=== PATIENT | male | born 1965 | race Hispanic/Latino ===

== ENCOUNTER 2018-02-12 14:55 | Emergency (ER) | payer BC ==
[2018-02-12 15:12] VITALS: O2SAT 98; BMI 38.4
[2018-02-12] MEDS ORDERED: Sodium Chloride 0.9% 1,000 ML IV STA (15:43)
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
[2018-02-12 16:37] LABS: ALB/GLOB RATIO 1.9 (1.0-2.1); ALBUMIN 4.6 g/dL (3.5-5.0); ALT/SGPT 56 U/L (21-72); AST/SGOT 30 U/L (17-59); BLOOD UREA NITROGEN 20 mg/dl (9-20); GFR AFRICAN-AMERICAN > 60; GFR NON-AFRICAN AMERICAN > 60
[2018-02-12 16:47] LABS: INR 1.1 (0.9-1.2); PARTIAL THROMBOPLASTIN TIME 30.5 Seconds (25.6-37.1); PROTHROMBIN TIME 11.8 Seconds (9.8-13.1)
--- NOTE | 2018-02-12 17:17 | CT ---
PROCEDURE: CT HEAD WITHOUT CONTRAST. HISTORY: Headache COMPARISON: 09/01/2016. TECHNIQUE: Axial computed tomography images were obtained through the head/brain without intravenous contrast. Radiation dose: Total exam DLP = 843.34 MGy-cm. This CT exam was performed using one or more of the following dose reduction techniques: Automated exposure control, adjustment of the mA and/or kV according to patient size, and/or use of iterative reconstruction technique. FINDINGS: HEMORRHAGE: No intracranial hemorrhage. BRAIN: Peterson-white matter differentiation is preserved. There is no mass, mass effect or abnormal extra-axial fluid collection. There is no territorial infarction. The midline sagittal structures are normal. VENTRICLES: The ventricles are normal in size, shape and configuration. CALVARIUM: The skull base and calvarium are normal. PARANASAL SINUSES: Predominantly clear. MASTOID AIR CELLS: Predominantly clear. OTHER FINDINGS: None. IMPRESSION: No acute intracranial abnormality.
--- NOTE | 2018-02-12 17:42 | CT ---
PROCEDURE: CT Cervical Spine without contrast HISTORY: Neck pain COMPARISON: None available. TECHNIQUE: Axial computed tomography images were obtained of the cervical spine without the use of intravenous contrast. Coronal and sagittal reformatted images were created and reviewed. Radiation dose: Total exam DLP = 945.73 mGy-cm. This CT exam was performed using one or more of the following dose reduction techniques: Automated exposure control, adjustment of the mA and/or kV according to patient size, and/or use of iterative reconstruction technique. FINDINGS: VERTEBRAE: There is straightening of the cervical spine with loss of normal cervical lordosis. Vertebral alignment is normal. Vertebral height is maintained. There is no acute fracture or traumatic anterior listhesis. The craniocervical junction is normal. The atlantoaxial joint is normal. DISCS/SPINAL CANAL/NEURAL FORAMINA: There is mild multilevel degenerative disc disease due to combination of disc osteophyte complexes, uncovertebral joint hypertrophy and mild multilevel facet arthropathy worse at C5-6 with severe left neural foraminal narrowing. No central spinal canal stenosis. PARASPINAL SOFT TISSUES: The paraspinous soft tissues are normal. OTHER FINDINGS: None. IMPRESSION: No acute fracture or traumatic anterolisthesis.
[2018-02-12 17:51] LABS: BASO % 0.2 % (0.0-2.0); EOS # 0.1 K/uL (0.0-0.7); EOS % 1.6 % (0.0-4.0); HEMOGLOBIN 15.4 g/dL (12.0-18.0); LYMPH # 1.5 K/uL (1.0-4.3); MEAN CELL VOLUME 89.8 fl (80.0-94.0); MEAN CORPUSCULAR HEMOGLOBIN 31.3 pg (27.0-31.0); MEAN CORPUSCULAR HGB CONC 34.8 g/dL (33.0-37.0); MEAN PLATELET VOLUME 8.7 fl (7.2-11.7); MONO # 0.5 K/uL (0.0-0.8); MONO % 7.2 % (0.0-10.0); NRBC % 0.2 % (0.0-0.0); RBC 4.93 Mil/uL (4.40-5.90)
[2018-02-12 17:56] LABS: WHITE BLOOD COUNT 7.1 K/uL (4.8-10.8)
[2018-02-12 18:45] VITALS: BP 128/76; PULSE 78; RESP 19; TEMP 96.6
--- NOTE | 2018-02-13 13:06 | CARD ---
APPROVED REPORT EKG Measurement Heart [id number] <Conclusion> Normal sinus rhythm Moderate voltage criteria for LVH, may be normal variant ST elevation, consider early repolarization, pericarditis, or injury Abnormal ECG
== END 2018-02-12 18:46 | disposition home or self-care (01) ==
LOC: H.ER 14:55
DX: S09.90XA Unspecified injury of head, initial encounter (principal); W22.8XXA Striking against or struck by other objects, initial encounter; Y92.89 Other specified places as the place of occurrence of the external cause; Z79.82 Long term (current) use of aspirin
CPT/HCPCS: 70450; 72125; 80053; 84484; 85025; 85610; 85730; 93005; 99283; J7030

== ENCOUNTER 2018-03-02 11:28 | Observation (INO) | payer BC ==
[2018-03-02 11:44] VITALS: BMI 25.5
[2018-03-02] MEDS ORDERED: Sodium Chloride 0.9% 1,000 ML IV SCH (14:45)
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
[2018-03-02 16:39] LABS: BASO % 0.2 % (0.0-2.0); EOS # 0.1 K/uL (0.0-0.7); HEMOGLOBIN 15.6 g/dL (12.0-18.0); LYMPH # 1.4 K/uL (1.0-4.3); LYMPH % 19.9 % (20.0-40.0); MEAN CELL VOLUME 89.4 fl (80.0-94.0); MEAN CORPUSCULAR HEMOGLOBIN 30.8 pg (27.0-31.0); MEAN CORPUSCULAR HGB CONC 34.4 g/dL (33.0-37.0); MEAN PLATELET VOLUME 8.3 fl (7.2-11.7); MONO # 0.5 K/uL (0.0-0.8); MONO % 6.6 % (0.0-10.0); NEUT # 5.1 K/uL (1.8-7.0); NEUT % 72.3 % (50.0-75.0); RBC 5.07 Mil/uL (4.40-5.90); WHITE BLOOD COUNT 7.1 K/uL (4.8-10.8)
[2018-03-02 17:00] LABS: ACETAMINOPHEN < 10.0 ug/ml (10.0-30.0); SALICYLATE < 1.0 mg/dl
[2018-03-02 17:02] LABS: ALB/GLOB RATIO 1.8 (1.0-2.1); ALBUMIN 4.6 g/dL (3.5-5.0); ALT/SGPT 57 U/L (21-72); AST/SGOT 36 U/L (17-59); BLOOD UREA NITROGEN 16 mg/dl (9-20); CALCIUM 9.1 mg/dL (8.4-10.2); GFR AFRICAN-AMERICAN > 60; GFR NON-AFRICAN AMERICAN > 60
[2018-03-02 22:16] LABS: BARBITURATES, UR NEGATIVE (NEGATIVE); BENZODIAZEPINES, UR NEGATIVE (NEGATIVE); OPIATES, UR NEGATIVE (NEGATIVE); PHENCYCLIDINE, UR NEGATIVE (NEGATIVE)
[2018-03-02 22:28] LABS: URINE BACTERIA RARE (<OCC); URINE BILIRUBIN NEGATIVE (NEGATIVE); URINE BLOOD NEGATIVE (NEGATIVE); URINE CLARITY CLOUDY (Clear); URINE COLOR YELLOW (YELLOW); URINE GLUCOSE (UA) NEG (Normal); URINE LEUKOCYTE ESTERASE NEG Leu/uL (Negative); URINE PROTEIN 30 mg/dL (NEGATIVE); URINE UROBILINOGEN 0.2-1.0 mg/dL (0.2-1.0)
[2018-03-03 05:41] LABS: MEAN CELL VOLUME 88.8 fl (80.0-94.0); MEAN CORPUSCULAR HGB CONC 34.9 g/dL (33.0-37.0); RBC 4.84 Mil/uL (4.40-5.90); RED CELL DISTRIBUTION WIDTH 12.7 % (11.5-14.5); WHITE BLOOD COUNT 7.6 K/uL (4.8-10.8)
[2018-03-03 06:25] LABS: ALB/GLOB RATIO 1.7 (1.0-2.1); ALBUMIN 3.8 g/dL (3.5-5.0); ALT/SGPT 55 U/L (21-72); AST/SGOT 29 U/L (17-59); BLOOD UREA NITROGEN 18 mg/dl (9-20); CALCIUM 8.4 mg/dL (8.4-10.2); GFR AFRICAN-AMERICAN > 60; GFR NON-AFRICAN AMERICAN > 60; HDL CHOLESTEROL 26 MG/DL (30-70); LDL CHOLESTEROL 69 mg/dL (0-129)
[2018-03-03 07:27] LABS: T4 6.07 ug/dl (5.5-11.0)
[2018-03-03] MEDS ORDERED: Pneumococcal 23-Valent Vaccine IM ONE (08:31)
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
--- NOTE | 2018-03-03 15:08 | MRI ---
Date of service: 03/02/2018 PROCEDURE: MRI BRAIN WITHOUT CONTRAST HISTORY: headaches, transient weakness COMPARISON: Comparison made with CT scan of the brain both dated 02/12/2018. TECHNIQUE: Multiplanar, multisequence MR images of the brain were obtained without intravenous contrast enhancement. FINDINGS: HEMORRHAGE: No acute parenchymal, subarachnoid or extra-axial hemorrhage. No evidence hemosiderin deposition identified on gradient echo weighted sequence. . DWI: No evidence of an acute or early subacute infarction seen on diffusion imaging. . BRAIN PARENCHYMA: There are multiple small chronic appearing lacunar type infarcts seen scattered about the deep and subcortical white matter both cerebral hemispheres. In addition, there also appear to be some very minimal chronic periventricular white matter ischemic changes. None of these changes exhibit restricted diffusion VENTRICLES: No obstructive hydrocephalus. CRANIUM: Unremarkable. ORBITS: Orbits and contents unremarkable. PARANASAL SINUSES/MASTOIDS: There are Re- demonstrated are polypoid like areas of mucosal thickening both maxillary antra VASCULAR SYSTEM: Visualized major vascular flow voids at skull base patent. OTHER FINDINGS: None. IMPRESSION: No evidence of acute intracranial hemorrhage or infarction. Minor chronic white matter ischemic changes.
[2018-03-03 15:48] VITALS: BP 144/85; PULSE 88; RESP 20; TEMP 97.8; O2SAT 96
--- NOTE | 2018-03-04 10:26 | CP.PCM.DIS ---
Provider - Provider Date of Admission: 03/02/18 17:20 Attending physician: Darren Dunlap MD Diagnosis - Discharge Diagnosis (1) Bilateral headaches Status: Acute (2) Labile mood Status: Acute Hospital Course - Lab Results Lab Results: Most Recent Lab Values WBC 7.6 K/uL (4.8-10.8) 03/03/18 04:20 RBC 4.84 Mil/uL (4.40-5.90) 03/03/18 04:20 Hgb 15.0 g/dL (12.0-18.0) 03/03/18 04:20 Hct 43.0 % (35.0-51.0) 03/03/18 04:20 MCV 88.8 fl (80.0-94.0) 03/03/18 04:20 MCH 31.0 pg (27.0-31.0) 03/03/18 04:20 MCHC 34.9 g/dL (33.0-37.0) 03/03/18 04:20 RDW 12.7 % (11.5-14.5) 03/03/18 04:20 Plt Count 211 K/uL (130-400) 03/03/18 04:20 MPV 8.3 fl (7.2-11.7) 03/02/18 16:30 Neut % (Auto) 72.3 % (50.0-75.0) 03/02/18 16:30 Lymph % (Auto) 19.9 % (20.0-40.0) L 03/02/18 16:30 [place] % (Auto) 6.6 % (0.0-10.0) 03/02/18 16:30 Eos % (Auto) 1.0 % (0.0-4.0) 03/02/18 16:30 Baso % (Auto) 0.2 % (0.0-2.0) 03/02/18 16:30 Neut # (Auto) 5.1 K/uL (1.8-7.0) 03/02/18 16:30 Lymph # (Auto) 1.4 K/uL (1.0-4.3) 03/02/18 16:30 [place] # (Auto) 0.5 K/uL (0.0-0.8) 03/02/18 16:30 Eos # (Auto) 0.1 K/uL (0.0-0.7) 03/02/18 16:30 Baso # (Auto) 0.0 K/uL (0.0-0.2) 03/02/18 16:30 ESR 6 mm/hr (0-20) 03/02/18 16:30 Sodium 140 mmol/l (132-148) 03/03/18 04:20 Potassium 3.9 MMOL/L (3.6-5.0) 03/03/18 04:20 Chloride 106 mmol/L (98-107) 03/03/18 04:20 Carbon Dioxide 25 mmol/L (22-30) 03/03/18 04:20 Anion Gap 13 (10-20) 03/03/18 04:20 BUN 18 mg/dl (9-20) 03/03/18 04:20 Creatinine 0.9 mg/dl (0.8-1.5) 03/03/18 04:20 Est GFR ( Amer) > 60 03/03/18 04:20 Est GFR (Non-Af Amer) > 60 03/03/18 04:20 Random Glucose 104 mg/dL (75-110) 03/03/18 04:20 Calcium 8.4 mg/dL (8.4-10.2) 03/03/18 04:20 Magnesium 1.9 MG/DL (1.6-2.3) 03/02/18 16:30 Total Bilirubin 0.5 mg/dl (0.2-1.3) 03/03/18 04:20 AST 29 U/L (17-59) 03/03/18 04:20 ALT 55 U/L (21-72) 03/03/18 04:20 Alkaline Phosphatase 64 U/L (38-126) 03/03/18 04:20 Total Protein 6.0 G/DL (6.3-8.2) L 03/03/18 04:20 Albumin 3.8 g/dL (3.5-5.0) 03/03/18 04:20 Globulin 2.2 gm/dL (2.2-3.9) 03/03/18 04:20 Albumin/Globulin Ratio 1.7 (1.0-2.1) 03/03/18 04:20 Triglycerides 251 mg/DL (0-149) H D 03/03/18 04:20 Cholesterol 125 mg/dL (0-199) 03/03/18 04:20 LDL Cholesterol Direct 69 mg/dL (0-129) 03/03/18 04:20 HDL Cholesterol 26 MG/DL (30-70) L 03/03/18 04:20 Thyroxine (T4) 6.07 ug/dl (5.5-11.0) 03/03/18 04:20 TSH 3rd Generation 3.02 mIU/ML (0.46-4.68) 03/03/18 04:20 Urine Color Yellow (YELLOW) 03/02/18 21:30 Urine Clarity Cloudy (Clear) 03/02/18 21:30 Urine pH 6.0 (5.0-8.0) 03/02/18 21:30 Ur Specific [place] 1.027 (1.003-1.030) 03/02/18 21:30 Urine Protein 30 mg/dL (NEGATIVE) 03/02/18 21:30 Urine Glucose (UA) Neg mg/dL (Normal) 03/02/18 21:30 Urine Ketones Negative mg/dL (NEGATIVE) 03/02/18 21:30 Urine Blood Negative (NEGATIVE) 03/02/18 21:30 Urine Nitrate Negative (NEGATIVE) 03/02/18 21:30 Urine Bilirubin Negative (NEGATIVE) 03/02/18 21:30 Urine Urobilinogen 0.2-1.0 mg/dL (0.2-1.0) 03/02/18 21:30 Ur Leukocyte Esterase Neg Flaco/uL (Negative) 03/02/18 21:30 Urine RBC (Auto) 5 /hpf (0-3) H 03/02/18 21:30 Urine Microscopic WBC 1 /hpf (0-5) 03/02/18 21:30 Urine Bacteria Rare (<OCC) 03/02/18 21:30 Salicylates < 1.0 mg/dl 03/02/18 16:30 Urine Opiates Screen Negative (NEGATIVE) 03/02/18 21:30 Urine Methadone Screen Negative (NEGATIVE) 03/02/18 21:30 Acetaminophen < 10.0 ug/ml (10.0-30.0) L 03/02/18 16:30 Ur Barbiturates Screen Negative (NEGATIVE) 03/02/18 21:30 Ur Phencyclidine Scrn Negative (NEGATIVE) 03/02/18 21:30 Ur Amphetamines Screen Negative (NEGATIVE) 03/02/18 21:30 U Benzodiazepines Scrn Negative (NEGATIVE) 03/02/18 21:30 U Oth Cocaine Metabols Negative (NEGATIVE) 03/02/18 21:30 U Cannabinoids Screen Negative (NEGATIVE) 03/02/18 21:30 Alcohol, Quantitative < 10 mg/dl (0-10) 03/02/18 16:30 Discharge Exam - Head Exam Head Exam: ATRAUMATIC, NORMOCEPHALIC Discharge Plan - Follow Up Plan Condition: STABLE Disposition: ELOPED FROM NURSING UNIT Instructions: Depression, Adult (DC), Headache, Adult (DC) Additional Instructions: follow up with pmd in 1 week Referrals: [facility] [place] [Outside] Joni Mcarthur MD [Medical Doctor] -
== END 2018-03-03 16:45 | disposition left against medical advice (07) ==
LOC: H.ER 11:28 → H.ERHOLD 17:20 → H.TEL 21:56
PROVIDERS: ADMIT Internal Medicine Pulmonary Disease; ATTEND Internal Medicine Pulmonary Disease
DX: R51 Headache (principal); F39 Unspecified mood [affective] disorder; Z79.82 Long term (current) use of aspirin; F22 Delusional disorders; Z87.820 Personal history of traumatic brain injury; G89.29 Other chronic pain; M25.569 Pain in unspecified knee; I25.2 Old myocardial infarction; S09.90XD Unspecified injury of head, subsequent encounter; V89.2XXA Person injured in unspecified motor-vehicle accident, traffic, initial encounter; Y92.410 Unspecified street and highway as the place of occurrence of the external cause; F32.9 Major depressive disorder, single episode, unspecified; R41.82 Altered mental status, unspecified; Z80.1 Family history of malignant neoplasm of trachea, bronchus and lung
CPT/HCPCS: 36415; 70551; 80053; 80061; 81003; 83735; 84436; 84443; 85025; 85027; 85651; 96374; 96375; 99285; G0378; G0480; J1885; J2765; J7030